=== PATIENT | male | born 1985 | race African-American/Black ===

== ENCOUNTER 2023-05-09 12:59 | Emergency (ER) | payer OTHER ==
[~2023-05-09] VITALS: Ht 193 cm; Wt 93.0 kg
[2023-05-09 13:12] VITALS: BP_SYST 154; PULSE 86; RESP 20; TEMP 98.3; O2SAT 98
--- NOTE | 2023-05-09 13:12 | NUR ---
Patient to ER bed H1 to gown for evaluation. Side rails up.
--- NOTE | 2023-05-09 13:13 | NUR ---
PATIENT C/O LEFT ANKLE PAIN SINCE YESTERDAY. WAS MOVING FURNITURE OUT OF A TRUCK WITH LRAGE STEP DOWN AND MIS-STEPPED, TWISTING HIS ANKLE. RATES PAIN SITTING AT 3/10 BUT WITH PRESSURE 8/10. TRIED 800 MG IBUPROFEN WITH LITTLE RELIEF. NO MED HX, NKA. VSS.
--- NOTE | 2023-05-09 13:23 | NUR ---
DOCTOR AT BEDSIDE.
[2023-05-09] MEDS ORDERED: KETOROLAC TROMETHAMINE 30 MG VIAL IM ONE (13:30)
--- NOTE | 2023-05-09 13:53 | NUR ---
PATIENT GIVEN MEDICATION PER MD ORDERS.
[2023-05-09] MEDS ORDERED: IBUP-1969 PO (14:57)
[2023-05-09 15:07] VITALS: BP_SYST 154; PULSE 86; RESP 20; TEMP 98.3; O2SAT 98
--- NOTE | 2023-05-09 15:08 | NUR ---
Patient given written and verbal discharge instructions and verbalizes understanding. ER MD discussed with patient the results and treatment provided. Patient in stable condition. ID arm band removed. Rx of IBUPROFEN given. Patient educated on pain management and to follow up with PMD. Pain Scale 0/10. Opportunity for questions provided and answered. Medication side effect fact sheet provided.
== END 2023-05-09 15:08 | disposition home or self-care (01) ==
LOC: SED 12:59
DX: S93.402A Sprain of unspecified ligament of left ankle, initial encounter (principal); Z79.899 Other long term (current) drug therapy; W18.43XA Slipping, tripping and stumbling without falling due to stepping from one level to another, initial encounter; Y93.89 Activity, other specified; Y92.89 Other specified places as the place of occurrence of the external cause; Y99.8 Other external cause status
CPT/HCPCS: 99283; 73610; 96372; J1885